=== PATIENT | female | born 1980 | race Two or more races ===

== ENCOUNTER 2019-05-01 08:50 | Emergency (ER) | payer MEDICAID ==
[2019-05-01 08:57] VITALS: BP 115/71
== END 2019-05-01 15:18 | disposition left against medical advice (07) ==
LOC: ER 09:18
DX: R42 Dizziness and giddiness (principal); Z53.21 Procedure and treatment not carried out due to patient leaving prior to being seen by health care provider

== ENCOUNTER 2019-05-01 09:25 | Observation (INO) | payer MEDICAID ==
[2019-05-01] MEDS ORDERED: ACETAMINOPHEN 500 MG TAB PO ONE (10:00)
[2019-05-01] MEDS ORDERED: LACTATED RINGER'S 1,000 ML IV ONE (10:00)
== END 2019-05-01 11:40 | disposition home or self-care (01) | DRG 566 ==
LOC: LDRP 09:25
PROVIDERS: ADMIT Obstetrics & Gynecology; ATTEND Obstetrics & Gynecology
DX: O99.613 Diseases of the digestive system complicating pregnancy, third trimester (principal); O26.893 Other specified pregnancy related conditions, third trimester; H53.8 Other visual disturbances; K52.9 Noninfective gastroenteritis and colitis, unspecified; R19.7 Diarrhea, unspecified; R42 Dizziness and giddiness; R11.0 Nausea; R51 Headache; Z3A.28 28 weeks gestation of pregnancy
CPT/HCPCS: 59025; 81002; 96360; G0378; 96365; 96366

== ENCOUNTER 2019-05-02 13:01 | Emergency (ER) | payer MEDICAID ==
[~2019-05-02] VITALS: Ht 172.7 cm; Wt 77.1 kg
[2019-05-02 13:33] VITALS: BP 102/60
[2019-05-02] MEDS ORDERED: SODIUM CHLORIDE 0.9% 1,000 ML IV ONE ×3 (13:35→17:00)
[2019-05-02] MEDS ORDERED: PROMETHAZINE HCL 25 MG/ML 1ML IV ONE (13:45)
[2019-05-02 13:58] LABS: Basophils # (auto) 0 uL; Basophils % (auto) 0.3 % (0.0-2.0); Eosinophils # (auto) 0 uL; Eosinophils % (auto) 0.1 % (0.0-7.0); Hematocrit 38.5 % (36.0-46.0); Hemoglobin 12.8 g/dL (12.2-16.2); Lymphocytes # (auto) 1.1 uL; Lymphocytes % (auto) 13.4 % (10.0-50.0); Mean Corpuscular Hemoglobin 28.5 pg (28.0-32.0); Mean Corpuscular Hgb Conc. 33.2 g/dL (32.0-36.0); Mean Corpuscular Volume 85.8 fL (80.0-100.0); Monocytes # (auto) 0.4 uL; Monocytes % (auto) 4.5 % (0.0-12.0); Neutrophils # (auto) 6.9 uL; Neutrophils % (auto) 81.7 % (37.0-80.0); Platelet Count (auto) 166 10^3/uL (140-450); Red Blood Cells 4.48 10^6/uL (4.0-5.20); Red Cell Distribution Width 14.3 % (11.8-14.3); White Blood Cell 8.4 10^3/uL (4.4-10.8)
[2019-05-02 14:19] LABS: Albumin 2.8 g/dL (3.4-5.0); Calcium 8.7 mg/dL (8.5-10.1); Potassium 3.5 mmol/L (3.5-5.1)
[2019-05-02 14:22] LABS: BUN/Creatinine Ratio 13.2; Bilirubin, Total 0.4 mg/dL (0.2-1.0); Total Protein 7.5 g/dL (6.4-8.2)
[2019-05-02 16:17] LABS: Urine Bacteria FEW /hpf (None Seen); Urine Blood Negative /uL (Negative); Urine Specific Gravity 1.005 (1.001-1.035); Urine WBC 6 /hpf (0 - 5)
== END 2019-05-02 17:46 | disposition home or self-care (01) ==
LOC: ER 13:01
DX: O21.0 Mild hyperemesis gravidarum (principal); Z3A.28 28 weeks gestation of pregnancy
CPT/HCPCS: 36415; 80053; 81001; 82010; 82962; 85025; 96361; 96374; 99283; J2550; J7030

== ENCOUNTER 2019-05-05 11:48 | Emergency (ER) | payer MEDICAID ==
[~2019-05-05] VITALS: Ht 172.7 cm; Wt 109.8 kg
[2019-05-05] MEDS ORDERED: SODIUM CHLORIDE 0.9% 1,000 ML IV ONE (12:13)
[2019-05-05 13:14] LABS: Anion Gap 9 (5-15); BUN/Creatinine Ratio 6.8; Blood Urea Nitrogen 5 mg/dL (7-18); Calcium 8.1 mg/dL (8.5-10.1); Carbon Dioxide 22 mmol/L (21-32); Chloride 108 mmol/L (98-107); GFR African American 114 mL/min; GFR Non-African American 94 mL/min; Glucose 119 mg/dL (74-106); Magnesium 1.8 mg/dL (1.6-2.6); Potassium 3.7 mmol/L (3.5-5.1); Sodium 139 mmol/L (136-145)
[2019-05-05 14:30] VITALS: BP 95/55
[2019-05-05 16:40] LABS: Urine Bacteria FEW /hpf (None Seen); Urine Blood Negative /uL (Negative); Urine Specific Gravity 1.014 (1.001-1.035); Urine WBC 13 /hpf (0 - 5)
== END 2019-05-05 15:13 | disposition home or self-care (01) ==
LOC: ER 12:00
DX: O26.892 Other specified pregnancy related conditions, second trimester (principal); R42 Dizziness and giddiness; O21.9 Vomiting of pregnancy, unspecified; Z3A.00 Weeks of gestation of pregnancy not specified
CPT/HCPCS: 36415; 80048; 81001; 83735; 84484; 93005; 96360; 99284; J7030

== ENCOUNTER 2019-07-08 09:49 | Observation (INO) | payer MEDICAID ==
[2019-07-08] MEDS ORDERED: PREN-153 OR (11:05)
== END 2019-07-08 11:45 | disposition home or self-care (01) | DRG 566 ==
LOC: LDRP 09:49
PROVIDERS: ADMIT Specialist; ATTEND Specialist
DX: O40.3XX0 Polyhydramnios, third trimester, not applicable or unspecified (principal); Z3A.37 37 weeks gestation of pregnancy
CPT/HCPCS: 59025; 76818; 81002; G0378

== ENCOUNTER 2019-07-11 16:02 | Observation (INO) | payer MEDICAID ==
[~2019-07-11 16:02] MED LIST: PREN-153 OR
== END 2019-07-11 17:40 | disposition home or self-care (01) | DRG 566 ==
LOC: LDRP 16:02
PROVIDERS: ADMIT Specialist; ATTEND Specialist
DX: O40.3XX0 Polyhydramnios, third trimester, not applicable or unspecified (principal); O09.523 Supervision of elderly multigravida, third trimester; Z3A.38 38 weeks gestation of pregnancy
CPT/HCPCS: 59025; 76818; 81002; G0378

== ENCOUNTER 2019-07-15 09:41 | Observation (INO) | payer MEDICAID | END 2019-07-15 11:25 | disposition home or self-care (01) | DRG 566 | LOC: LDRP 09:41 | PROVIDERS: ADMIT Obstetrics & Gynecology; ATTEND Obstetrics & Gynecology | DX: O13.3 Gestational [pregnancy-induced] hypertension without significant proteinuria, third trimester (principal); Z3A.38 38 weeks gestation of pregnancy | CPT/HCPCS: 59025; 76818; 81002; G0378 ==

== ENCOUNTER 2019-07-18 10:41 | Observation (INO) | payer MEDICAID | END 2019-07-18 12:20 | disposition home or self-care (01) | DRG 566 | LOC: LDRP 10:41 | PROVIDERS: ADMIT Obstetrics & Gynecology; ATTEND Obstetrics & Gynecology | DX: O40.3XX0 Polyhydramnios, third trimester, not applicable or unspecified (principal); O09.523 Supervision of elderly multigravida, third trimester; Z3A.39 39 weeks gestation of pregnancy | CPT/HCPCS: 59025; 76818; 81002; G0378 ==

== ENCOUNTER 2019-07-22 09:51 | Observation (INO) | payer MEDICAID | END 2019-07-22 11:50 | disposition home or self-care (01) | DRG 566 | LOC: LDRP 09:51 | PROVIDERS: ADMIT Specialist; ATTEND Specialist | DX: O40.3XX0 Polyhydramnios, third trimester, not applicable or unspecified (principal); O26.893 Other specified pregnancy related conditions, third trimester; O09.523 Supervision of elderly multigravida, third trimester; R19.7 Diarrhea, unspecified; Z3A.39 39 weeks gestation of pregnancy | CPT/HCPCS: 59025; 76818; 81002; G0378 ==

== ENCOUNTER 2019-07-25 11:00 | Observation (INO) | payer MEDICAID | END 2019-07-25 12:06 | disposition home or self-care (01) | DRG 566 | LOC: LDRP 11:00 | PROVIDERS: ADMIT Specialist; ATTEND Specialist | DX: O62.9 Abnormality of forces of labor, unspecified (principal); O09.523 Supervision of elderly multigravida, third trimester; O48.0 Post-term pregnancy; Z3A.40 40 weeks gestation of pregnancy | CPT/HCPCS: 59025; 76818; 81002; G0378 ==

== ENCOUNTER 2019-09-19 09:36 | Day surgery (SDC) | payer MEDICAID ==
[~2019-09-19] VITALS: Ht 167.6 cm; Wt 105.7 kg
[2019-09-19] MEDS ORDERED: ceFAZolin 1GM/50ML 50 ML IV ONE (10:16)
[2019-09-19] MEDS ORDERED: NALOXONE HCL 0.4 MG/ML VIAL IV PRN (10:30)
[2019-09-19] MEDS ORDERED: SUCCINYLCHOLINE CHLORIDE 20 MG/ML 10ML VIAL IV ONE (10:30)
[2019-09-19] MEDS ORDERED: ONDANSETRON HCL 4 MG/2 ML VIAL IV PRN ×2 (10:30→11:45)
[2019-09-19] MEDS ORDERED: LIDOCAINE 1% (LOCAL ANESTH.) PF 5ml SDV ONE (10:30)
[2019-09-19] MEDS ORDERED: HYDROmorphone HCL 2 MG/ML VL IV PRN ×2 (10:30)
[2019-09-19] MEDS ORDERED: MIDAZOLAM HCL 1MG/1ML-2 ML VIAL ONE (10:32)
[2019-09-19] MEDS ORDERED: ROCURONIUM 10MG/ML 10ML VIAL IV ONE (10:34)
[2019-09-19] MEDS ORDERED: PROPOFOL 10 MG/ML 20 ML IV ONE (10:34)
[2019-09-19 10:38] LABS: BUN/Creatinine Ratio 14.8; Calcium 9.1 mg/dL (8.5-10.1)
[2019-09-19 10:41] LABS: Bilirubin, Total 0.4 mg/dL (0.2-1.0); Total Protein 8.7 g/dL (6.4-8.2)
[2019-09-19] MEDS ORDERED: METOCLOPRAMIDE HCL 5MG/ml INJ 2ml VIAL ONE (10:42)
[2019-09-19] MEDS ORDERED: fentaNYL CITRATE 100 MCG/2 ML VL ONE (10:50)
[2019-09-19] MEDS ORDERED: NEOSTIGMINE 1 MG/ML INJ (10mg/10ML VIAL) ONE (11:15)
[2019-09-19] MEDS ORDERED: GLYCOPYRROLATE 0.2 MG/ML 1ML VIAL ONE (11:15)
[2019-09-19] MEDS ORDERED: KETOROLAC TROMETH 30 MG/ML 1ML VIAL ONE (11:16)
[2019-09-19] MEDS ORDERED: LACTATED RINGER'S 1,000 ML IV SCH (11:40)
[2019-09-19 14:41] VITALS: BP 115/77
== END 2019-09-19 15:24 | disposition home or self-care (01) ==
LOC: SUR 09:36
PROVIDERS: ATTEND Specialist
DX: Z30.2 Encounter for sterilization (principal); E66.01 Morbid (severe) obesity due to excess calories; Z68.37 Body mass index [BMI] 37.0-37.9, adult
CPT/HCPCS: 36415; 58671; 80053; 86850; 86900; 86901; 93005; J0330; J0690; J1885; J2250; J2704; J2765; J3010